=== PATIENT | male | born 1950 | race Caucasian/White ===

== ENCOUNTER 2020-04-26 07:30 | Outpatient (CLI) | payer OTHER ==
[~2020-04-26] VITALS: Ht 172.7 cm; Wt 103.6 kg
[2020-04-26 08:07] LABS: HEMATOCRIT 43.6 % (42.0-54.0); HEMOGLOBIN 14.2 g/dL (13.5-17.5); LYMPHOCYTES 18.6 % (15-50); MCH 29.3 pg (26.0-34.0); MCHC 32.6 g/dL (31.0-37.0); MCV 89.9 fL (80.0-100.0); MEAN PLATELET VOLUME 9.6 fL (7.4-10.4); NEUTROPHILS 69.2 % (40-80); PLATELET COUNT 295 10x3/uL (130-400); RBC 4.85 10x6/uL (4.20-6.10); RDW 15.4 % (11.5-14.5)
[2020-04-26 08:19] LABS: ALBUMIN 3.6 g/dL (3.4-5.0); ANION GAP 11.2 mmol/L (8-16); BILIRUBIN - TOTAL 0.31 mg/dL (0.2-1.3); CALCIUM 9.4 mg/dL (8.5-10.1); CARBON DIOXIDE 28.6 mmol/L (21.0-32.0); CREATININE - SERUM 1.1 mg/dL (0.6-1.3); POTASSIUM - SERUM 3.8 mmol/L (3.5-5.1); PROTEIN - SERUM 7.7 g/dL (6.4-8.2)
[2020-04-26 08:41] LABS: APTT 25.5 SECONDS (22.8-39.4); INR 0.85 (0.85-1.17); PROTIME 11.6 SECONDS (11.6-15.0)
[2020-04-26] MEDS ORDERED: HUMULIN N100 U/ML SC (09:14)
[2020-04-26] MEDS ORDERED: HUMULIN R100 UNIT/1 SC (09:15)
[2020-04-26] MEDS ORDERED: FLOMAX0.4 MG PO (09:16)
[2020-04-26] MEDS ORDERED: LISINOPRIL-HCT1 EAC4 PO (09:26)
[2020-04-26] MEDS ORDERED: GLUCOPHAGE1000 MG PO (09:26)
[2020-04-26] MEDS ORDERED: GLIPIZIDE10 MG PO (09:26)
[2020-04-26] MEDS ORDERED: PROAIR HFA8.5 G1 INH (09:26)
[2020-04-26] MEDS ORDERED: BREO ELLIPTA 11 EACH INH (09:27)
[2020-04-26] MEDS ORDERED: BAYER CHEWABLE81 MG PO (09:27)
[2020-04-26 09:35] VITALS: Ht 172.7 cm; Wt 103.6 kg
--- NOTE | 2020-04-26 14:50 | NUR ---
RIGHT HAND PIV DC'D WITH TIP INTACT. DISCHARGE INSTRUCTIONS REVIEWED WITH PATIENT AND SPOUSE. PATIENT DRESSING IN PERSONAL CLOTHING [id number] PATIENT DISCHARGED HOME VIA WHEELCHAIR TO PRIVATE VEHICLE WITH SPOUSE
== END 2020-04-26 14:58 | disposition home or self-care (01) ==
LOC: D.SP 07:30 → D.CT 10:00 → D.SP 14:58
PROVIDERS: Specialist; ATTEND Internal Medicine Hematology & Oncology
DX: C25.2 Malignant neoplasm of tail of pancreas (principal); I10 Essential (primary) hypertension; E11.9 Type 2 diabetes mellitus without complications; J44.9 Chronic obstructive pulmonary disease, unspecified; Z79.4 Long term (current) use of insulin; C22.0 Liver cell carcinoma; N40.0 Benign prostatic hyperplasia without lower urinary tract symptoms; E78.01 Familial hypercholesterolemia

== ENCOUNTER 2020-05-11 07:24 | Outpatient (CLI) | payer OTHER ==
[~2020-05-11] VITALS: Ht 172.7 cm; Wt 103.6 kg
[~2020-05-11 07:24] MED LIST: BAYER CHEWABLE81 MG PO; BREO ELLIPTA 11 EACH INH; FLOMAX0.4 MG PO; GLIPIZIDE10 MG PO; GLUCOPHAGE1000 MG PO; HUMULIN N100 U/ML SC; HUMULIN R100 UNIT/1 SC; LISINOPRIL-HCT1 EAC4 PO; PROAIR HFA8.5 G1 INH
[2020-05-11 08:00] LABS: BASOPHILS 0.7 % (0-2); EOSINOPHILS 4.7 % (0-7); HEMATOCRIT 41.6 % (42.0-54.0); HEMOGLOBIN 13.5 g/dL (13.5-17.5); IMMATURE GRANULOCYTES 2.3 % (0-5); LYMPHOCYTES 18.6 % (15-50); MCH 29.7 pg (26.0-34.0); MCHC 32.5 g/dL (31.0-37.0); MCV 91.4 fL (80.0-100.0); MEAN PLATELET VOLUME 9.3 fL (7.4-10.4); MONOCYTES 9.2 % (2-11); NEUTROPHILS 64.5 % (40-80); PLATELET COUNT 270 10x3/uL (130-400); RBC 4.55 10x6/uL (4.20-6.10)
[2020-05-11 08:06] LABS: CALC OSMOLALITY 280 mosm/kg (275-300); CALCIUM 9.8 mg/dL (8.5-10.1); CARBON DIOXIDE 27.4 mmol/L (21.0-32.0); CHLORIDE - SERUM 102 mmol/L (98-107); INR 0.87 (0.85-1.17); POTASSIUM - SERUM 4.6 mmol/L (3.5-5.1); PROTIME 11.8 SECONDS (11.6-15.0); SODIUM 137 mmol/L (136-145); UREA NITROGEN 24 mg/dL (7-18); eGFR NON AFRICAN AMERICAN 79 mL/min (90-120)
[2020-05-11 08:07] LABS: APTT 25.3 SECONDS (22.8-39.4); GLUCOSE 155 mg/dL (74-106)
[2020-05-11 08:36] VITALS: BP 107/53; Ht 172.7 cm; Wt 103.6 kg
--- NOTE | 2020-05-11 12:45 | NUR ---
LEFT HAND PIV DC'D WITH TIP INTACT. LEFT FLANK DRESSING C/D/I. PATIENT AMBULATING AROUND ROOM WITHOUT UNSTEADINESS OR DIZZINESS. DISCHARGE INSTRUCTIONS REVIEWED WITH PATIENT AND SPOUSE
== END 2020-05-11 12:50 | disposition home or self-care (01) ==
LOC: D.SP 07:24 → D.CT 10:00 → D.SP 10:00
PROVIDERS: Specialist; ATTEND Internal Medicine Hematology & Oncology
DX: C25.2 Malignant neoplasm of tail of pancreas (principal); C78.7 Secondary malignant neoplasm of liver and intrahepatic bile duct; I10 Essential (primary) hypertension; E11.9 Type 2 diabetes mellitus without complications; Z79.84 Long term (current) use of oral hypoglycemic drugs; J44.9 Chronic obstructive pulmonary disease, unspecified